=== PATIENT | female | born 1960 ===

== ENCOUNTER 2017-09-16 20:25 | Inpatient (IN) | payer BC ==
[2017-09-16] MEDS ORDERED: Sodium Chloride 0.9% 1,000 ML IV ONE (20:45)
--- NOTE | 2017-09-16 20:45 | C.PDOC ---
History Of Present Illness 56 year old female presents to the ED c/o nausea, vomiting, diarrhea that started yesterday. Patient states that today she noticed some bright red blood in her stool and rectum. Patient states her discomfort is 4/10. Patient denies fever, chills, CP, SOB, weakness, numbness. Time Seen by Provider: 09/16/17 20:44 Chief Complaint (Nursing): GI Problem History Per: Patient History/Exam Limitations: no limitations Onset/Duration Of Symptoms: Days Current Symptoms Are (Timing): Still Present Context: Other Severity: Moderate Pain Scale Rating Of: 4 Location Of Pain/Discomfort: Epigastric Radiation Of Pain To:: None Quality Of Discomfort: "Pain" Associated Symptoms: Nausea, Vomiting, Diarrhea Exacerbating Factors: None Alleviating Factors: None Last Bowel Movement: Today Recent travel outside of the [place]: No Additional History Per: Patient Abnormal Vaginal Bleeding: No Past Medical History Reviewed: Historical Data, Nursing Documentation, Vital Signs Vital Signs: Last Vital Signs Temp 98.4 F 09/16/17 20:33 Pulse 87 09/16/17 20:33 Resp 20 09/16/17 20:33 BP 145/87 09/16/17 20:33 Pulse Ox 97 09/16/17 22:50 - Medical History PMH: Asthma Surgical History: No Surg Hx Family History: States: Unknown Family Hx - Social History Hx Alcohol Use: No Hx Substance Use: No Review Of Systems Constitutional: Negative for: Fever, Chills Eyes: Negative for: Vision Change ENT: Negative for: Throat Pain Cardiovascular: Negative for: Chest Pain, Palpitations Respiratory: Negative for: Cough, Shortness of Breath Gastrointestinal: Positive for: Nausea, Vomiting, Diarrhea, Melena Skin: Negative for: Rash Neurological: Negative for: Weakness, Numbness, Dizziness Psych: Negative for: Anxiety Physical Exam - Physical Exam Appears: Non-toxic, No Acute Distress Skin: Warm, Dry Head: Normacephalic Eye(s): bilateral: Normal Inspection Oral Mucosa: Dry Neck: Supple Chest: Symmetrical Cardiovascular: Rhythm Regular Respiratory: No Rales, No Rhonchi, No Wheezing Gastrointestinal/Abdominal: Soft, Tenderness (mild mid epigastric), No Guarding , No Rebound Rectal: No Hemorrhoids, Other (bright red blood in the vault) Back: Normal Inspection, No CVA Tenderness Extremity: No Tenderness, No Swelling Extremity: Bilateral: Atraumatic, Normal Color And Temperature, Normal ROM Neurological/Psych: Oriented x3, Normal Speech Gait: Steady ED Course And Treatment - Laboratory Results Result Diagrams: 09/16/17 21:05 09/16/17 21:05 O2 Sat by Pulse Oximetry: 97 (ON RA) Pulse Ox Interpretation: Normal - CT Scan/US CT abd/pelvis Other Rad Studies (CT/US): Read By Radiologist, Radiology Report Reviewed CT/US Interpretation: FINDINGS: Lung bases: Unremarkable. No mass. No consolidation. ABDOMEN: Liver: There is a diffuse decrease in hepatic parenchymal density, consistent with fatty infiltration. No mass. Gallbladder and bile ducts: Unremarkable. No calcified stones. No ductal dilation. Pancreas : Unremarkable. No mass. No ductal dilation. Spleen: Unremarkable. No splenomegaly. Adrenals: Unremarkable. No mass. Kidneys and ureters: Unremarkable. No solid mass. No hydronephrosis. Stomach and bowel: Marked diffuse colonic wall thickening from the distal transverse to sigmoid. consistent with acute colitis. No obstruction. PELVIS: Appendix: No findings to suggest acute appendicitis. Normal appendix. Bladder: Unremarkable. No mass. Reproductive: Unremarkable as visualized. [place] | Preliminary Radiology Report. CONFIDENTIALITY STATEMENT. This report is intended only for the use of the referring physician , and only in accordance with law, If you received this in error, call . Page 2 of 2. ABDOMEN and PELVIS: Intraperitoneal space: Unremarkable. No free air. No significant fluid collection. Bones/joints: No acute fracture. No dislocation. Soft tissues: Unremarkable. Vasculature: Unremarkable. No abdominal aortic aneurysm. Lymph nodes: Unremarkable. No enlarged lymph nodes. IMPRESSION: Acute colitis. Thank you for allowing us to participate in the care of your patient. Dictated and Authenticated by: Yeimi Gomez MD. 10:42 PM Eastern Time ([place] & [place]) Progress Note: Plan: - Labs. - IV fluids. - Zofran 4 mg IVP. - UA Disposition Discussed With : Enzo Swann Comment: accepted the pt on his service and took over the care 10:54 PM Counseled Patient/Family Regarding: Studies Performed, Diagnosis - Disposition Disposition: HOSPITALIZED Disposition Time: 20:45 Condition: FAIR Forms: [employer] (Latvian) - POA Present On Arrival: Poor Glycemic Control - Clinical Impression Clinical Impression: Acute colitis, GI bleed - Scribe Statement The provider has reviewed the documentation as recorded by the Scribe Chuy Bran All medical record entries made by the Scribe were at my direction and personally dictated by me. I have reviewed the chart and agree that the record accurately reflects my personal performance of the history, physical exam, medical decision making, and the department course for this patient. I have also personally directed, reviewed, and agree with the discharge instructions and disposition. Decision To Admit - Pt Status Changed To: Hospital Disposition Of: Inpatient - Admit Certification Admit to Inpatient:: After my assessment, the patient will require hospitalization for at least two midnights. This is because of the severity of symptoms shown, intensity of services needed, and/or the medical risk in this patient being treated as an outpatient. - InPatient: Physician Admission Certification:: After my assessment, the patient will require hospitalization for at least two midnights. This is because of the severity of symptoms shown, intensity of services needed, and/or the medical risk in this patient being treated as an outpatient. - . Bed Request Type: Regular Admitting Physician: Enzo Swann Patient Diagnosis: Acute colitis, GI bleed
[2017-09-16 21:10] LABS: BASO % 0.2 % (0.0-2.0); EOS % 0.2 % (0.0-4.0); HEMOGLOBIN 14.9 g/dL (11.0-16.0); LYMPH # 1.9 K/uL (1.0-4.3); LYMPH % 14.8 % (20.0-40.0); MEAN CELL VOLUME 85.1 fL (81.0-99.0); MEAN CORPUSCULAR HEMOGLOBIN 29.1 pg (27.0-31.0); MEAN CORPUSCULAR HGB CONC 34.1 g/dL (33.0-37.0); MEAN PLATELET VOLUME 8.3 fL (7.2-11.7); MONO % 7.3 % (0.0-10.0); NEUT # 10.1 K/uL (1.8-7.0); NEUT % 77.5 % (50.0-75.0); RBC 5.11 Mil/uL (3.80-5.20); RED CELL DISTRIBUTION WIDTH 13.4 % (11.5-14.5)
[2017-09-16 21:11] LABS: HCG,QUALITATIVE URINE NEGATIVE (NEGATIVE)
[2017-09-16] MEDS ORDERED: Sodium Chloride 0.9% 250 ML IV ONE (21:12)
[2017-09-16 21:14] LABS: SQUAMOUS EPITHIAL 10 /hpf (0-5); URINE BACTERIA OCC (<OCC); URINE BILIRUBIN NEGATIVE (NEGATIVE); URINE BLOOD 1+ (NEGATIVE); URINE CLARITY Hazy (Clear); URINE COLOR Yellow (YELLOW); URINE GLUCOSE (UA) NORMAL (Normal); URINE LEUKOCYTE ESTERASE NEG Leu/uL (Negative); URINE PROTEIN NEGATIVE (NEGATIVE); URINE UROBILINOGEN NORMAL mg/dL (0.2-1.0)
[2017-09-16 21:18] LABS: INR 1.2; PROTHROMBIN TIME 12.7 SECONDS (9.7-12.2)
[2017-09-16 21:22] LABS: ALB/GLOB RATIO 1.4 (1.0-2.1); ALBUMIN 4.2 g/dL (3.5-5.0); CALCIUM 9.1 mg/dl (8.6-10.4); GFR AFRICAN-AMERICAN > 60; GFR NON-AFRICAN AMERICAN > 60; LIPASE 54 U/L (23-300)
[2017-09-16 21:23] LABS: ALT/SGPT 53 U/L (9-52); AST/SGOT 30 U/L (14-36); BLOOD UREA NITROGEN 11 mg/dL (7-17)
[2017-09-16] MEDS ORDERED: Iodixanol 320 MG/ML 100 ML BOTTLE IV ONE (21:39)
[2017-09-16] MEDS ORDERED: Ciprofloxacin 400mg/200ml D5W 400 MG/200 ML BAG IVPB STA (22:46)
[2017-09-16] MEDS ORDERED: Ciprofloxacin 400mg/200ml D5W 400 MG/200 ML BAG IVPB ONE (22:59)
[2017-09-16] MEDS ORDERED: metroNIDAZOLE IV 500 mg/100 ml 500 MG/100 ML BAG IVPB SCH (23:00)
[2017-09-17] MEDS: metroNIDAZOLE IV 500 mg/100 ml 500 MG/100 ML BAG IVPB SCH ×4 (00:47→23:16)
[2017-09-17] MEDS: Ciprofloxacin 400mg/200ml D5W 400 MG/200 ML BAG IVPB SCH ×2 (04:27→13:00)
--- NOTE | 2017-09-17 09:10 | CT ---
Date of service: 09/16/2017 PROCEDURE: CT Abdomen and Pelvis with contrast HISTORY: lower gi bleed COMPARISON: None. TECHNIQUE: Contrast dose: 100 mL Visipaque 320. Axial and reformatted coronal and sagittal CT images of the abdomen and pelvis were obtained after IV contrast administration. Radiation dose: Total exam DLP = 1048.68 mGy-cm. This CT exam was performed using one or more of the following dose reduction techniques: Automated exposure control, adjustment of the mA and/or kV according to patient size, and/or use of iterative reconstruction technique. FINDINGS: LOWER THORAX: Unremarkable. LIVER: Hepatic steatosis is noted. No evidence of acute pathology or mass lesion in the liver. The portal vein is patent. GALLBLADDER AND BILE DUCTS: Unremarkable. PANCREAS: Unremarkable. No gross lesion or ductal dilatation. SPLEEN: Unremarkable. ADRENALS: Unremarkable. No mass. KIDNEYS AND URETERS: Unremarkable. No hydronephrosis. No solid mass. VASCULATURE: Unremarkable. No aortic aneurysm. BOWEL: There is diffuse wall thickening involving the splenic flexure and extending to the sigmoid colon consistent with acute colitis. There is no evidence of bowel obstruction. Mildly dilated ascending colon. APPENDIX: No evidence of appendicitis. PERITONEUM: Unremarkable. No free fluid. No free air. LYMPH NODES: Unremarkable. No enlarged lymph nodes. BLADDER: Unremarkable. REPRODUCTIVE: There is a enhancing lesion at the right aspect of the uterus likely represent fibroid measures 4.5 x 3.5 centimeter. BONES: No acute fracture. OTHER FINDINGS: None. IMPRESSION: Findings consistent with left colitis. The differential consideration includes infection inflammatory or ischemic colitis. No evidence of other acute pathology. Additional findings as described above. Preliminary report was submitted by virtual Radiology.
[2017-09-17] MEDS: Enoxaparin 40 mg Syringe SC SCH (10:28)
[2017-09-17 12:41] LABS: BASO % 0.3 % (0.0-2.0); EOS # 0.1 K/uL (0.0-0.7); EOS % 0.5 % (0.0-4.0); HEMOGLOBIN 13.8 g/dL (11.0-16.0); LYMPH # 1.9 K/uL (1.0-4.3); LYMPH % 16.5 % (20.0-40.0); MEAN CELL VOLUME 86.2 fL (81.0-99.0); MEAN CORPUSCULAR HEMOGLOBIN 28.7 pg (27.0-31.0); MEAN CORPUSCULAR HGB CONC 33.3 g/dL (33.0-37.0); MONO % 8.4 % (0.0-10.0); NEUT # 8.5 K/uL (1.8-7.0); NEUT % 74.3 % (50.0-75.0); NRBC % 0.1 % (0.0-2.0); RBC 4.81 Mil/uL (3.80-5.20); RED CELL DISTRIBUTION WIDTH 13.5 % (11.5-14.5); WHITE BLOOD COUNT 11.5 K/uL (4.8-10.8)
[2017-09-17 13:02] LABS: BLOOD UREA NITROGEN 8 mg/dL (7-17); CALCIUM 8.7 mg/dl (8.6-10.4); GFR AFRICAN-AMERICAN > 60; GFR NON-AFRICAN AMERICAN > 60
--- NOTE | 2017-09-17 22:13 | CP.PCM.HP ---
History of Present Illness - History of Present Illness History of Present Illness: History Of Present Illness 56 year old female presents to the ED c/o nausea, vomiting, diarrhea that started yesterday. Patient states that today she noticed some bright red blood in her stool and rectum. Patient states her discomfort is 4/10. Patient denies fever, chills, CP, SOB, weakness, numbness. Past Patient History - Past Medical History & Family History Past Medical History?: Yes - Past Social History Smoking Status: Never Smoked - CARDIAC Hx Cardiac Disorders: No - PULMONARY Hx Respiratory Disorders: Yes Hx Asthma: Yes - NEUROLOGICAL Hx Neurological Disorder: No - HEENT Hx HEENT Problems: No - RENAL Hx Chronic Kidney Disease: No - ENDOCRINE/METABOLIC Hx Diabetes Mellitus Type 2: Yes - HEMATOLOGICAL/ONCOLOGICAL Hx Blood Disorders: No - INTEGUMENTARY Hx Dermatological Problems: No - MUSCULOSKELETAL/RHEUMATOLOGICAL Hx Falls: No Other/Comment: pt states she had rt shoulder injury at work, had "microsurgery" on same - GASTROINTESTINAL Hx Gastrointestinal Disorders: No - GENITOURINARY/GYNECOLOGICAL Hx Genitourinary Disorders: No - PSYCHIATRIC Hx Psychophysiologic Disorder: No Hx Substance Use: No - SURGICAL HISTORY Hx Surgeries: Yes Hx Section: Yes (X 2) - ANESTHESIA Hx Anesthesia: Yes Hx Anesthesia Reactions: Yes Hx Malignant Hyperthermia: No Has any member of the family had a problem w/ anesthesia?: No Meds Allergies/Adverse Reactions: Allergies Allergy/AdvReac Type Severity Reaction Status Date / Time No Known Allergies Allergy Verified 09/16/17 20:33 Results - Vital Signs Recent Vital Signs: Last Vital Signs Temp 99.2 F 09/17/17 16:09 Pulse 76 09/17/17 19:02 Resp 18 09/17/17 19:02 BP 110/70 09/17/17 18:59 Pulse Ox 96 09/17/17 16:09 - Labs Result Diagrams: 09/17/17 12:35 09/17/17 12:35 Labs: Laboratory Results - last 24 hr 09/16/17 09/17/17 09/17/17 21:05 12:35 12:35 WBC 11.5 H RBC 4.81 Hgb 13.8 Hct 41.4 MCV 86.2 MCH 28.7 MCHC 33.3 RDW 13.5 Plt Count 246 MPV 8.0 Neut % (Auto) 74.3 Lymph % (Auto) 16.5 L [place] % (Auto) 8.4 Eos % (Auto) 0.5 Baso % (Auto) 0.3 Neut # (Auto) 8.5 H Lymph # (Auto) 1.9 [place] # (Auto) 1.0 H Eos # (Auto) 0.1 Baso # (Auto) 0.0 Sodium 137 Potassium 3.9 Chloride 102 Carbon Dioxide 27 Anion Gap 11 BUN 8 Creatinine 0.6 L Est GFR ( Amer) > 60 Est GFR (Non-Af Amer) > 60 Random Glucose 176 H Calcium 8.7 Carcinoembryonic Ag 0.8 Blood Type AB POSITIVE Antibody Screen Negative
[2017-09-18] MEDS: Ciprofloxacin 400mg/200ml D5W 400 MG/200 ML BAG IVPB SCH ×3 (00:59→23:58)
[2017-09-18] MEDS: metroNIDAZOLE IV 500 mg/100 ml 500 MG/100 ML BAG IVPB SCH ×2 (07:27→17:38)
[2017-09-18] MEDS ORDERED: Peg-Electrolyte Oral Soln 4L (Golytely) PO ONE (10:00)
[2017-09-18] MEDS: Enoxaparin 40 mg Syringe SC SCH (10:12)
--- NOTE | 2017-09-18 14:45 | PN ---
Copied To: Sourav Jacobs MD Attending MD: Sourav Jacobs MD DATE: 09/18/2017 LOCATION: 564, bed A. SUBJECTIVE: This is a 56-year-old female seen for GI consultation on 09/06/2017 as requested by the admitting MD, reexamined again today with intermittent periods of abdominal pain with recent change of bowel movement habit. No reported hematemesis, chest pain, palpitation or significant shortness of breath, but had nausea, vomiting and diarrhea with traces of fresh red blood rectally. The entire chart is reviewed including but not limited to the most recent lab and radiology study results, current and the previous medication list, current and the previous medical events. Today's lab is still pending. However, the patient had leukocytosis with subsequent mild drop of hemoglobin and hematocrit since the admission with blood glucose level of 176, but stool for occult blood is positive. PHYSICAL EXAMINATION: GENERAL: A 56-year-old female. VITAL SIGNS: Afebrile with pulse of 68, respiratory rate 20 to 22, blood pressure 116/76. HEENT: Showed pale, dry oral mucous membrane. Nonicteric sclerae. LUNGS: Few scattered crepitation. Decreased air entry at bases. HEART: Positive S1 and S2. ABDOMEN: Soft. Bowel sounds are present with mild distention and generalized diffuse tenderness. No mass or organomegaly. No rebound tenderness or guarding. RECTAL: Positive guaiac positive stool. EXTREMITIES: Without significant clubbing, cyanosis, or edema. NEUROLOGIC: No reported new neurological deficit, sensory, or motor. IMPRESSION: 1. Gastrointestinal bleeding, upper versus lower. 2. Re-exacerbation of peptic ulcer disease. 3. Abnormal CAT scan of the abdomen and pelvis with possible left-sided inflammatory versus ischemic colitis. 4. Hyperglycemia by recent history. 5. Known history of bronchial asthma. 6. Right shoulder minor surgery recently of unclear etiology. SUGGESTIONS: 1. Agree with your plan. 2. Cancer markers including CEA. 3. Endoscopic evaluation of the GI tract. 4. Further recommendation to follow. Sourav Jacobs MD
[2017-09-18] MEDS ORDERED: Bisacodyl 5mg EC Tab PO ONE (17:00)
--- NOTE | 2017-09-18 20:52 | CP.PCM.PN ---
Objective - Vital Signs/Intake and Output Vital Signs (last 24 hours): Temp Pulse Resp BP Pulse Ox 98.3 F 69 20 124/83 97 09/18/17 15:00 09/18/17 15:00 09/18/17 15:00 09/18/17 15:00 09/18/17 15:00 - Medications Medications: Current Medications Dicyclomine HCl (Bentyl) 10 mg IM Q8H PRN PRN Reason: GI distress Last Admin: 09/17/17 22:06 Dose: 10 mg Enoxaparin Sodium (Lovenox) 40 mg SC DAILY [facility] Last Admin: 09/18/17 10:12 Dose: 40 mg Famotidine (Pepcid) 20 mg IVP Q12 ERICA Last Admin: 09/18/17 10:11 Dose: 20 mg Metronidazole (Flagyl) 500 mg in 100 mls @ 100 mls/hr IVPB STAT ERICA PRN Reason: Protocol Ciprofloxacin (Cipro 400mg/200ml Dsw) 400 mg in 200 mls @ 133 mls/hr IVPB Q12H ERICA PRN Reason: Protocol Last Admin: 09/18/17 12:42 Dose: 133 mls/hr Metronidazole (Flagyl) 500 mg in 100 mls @ 100 mls/hr IVPB Q8H ERICA PRN Reason: Protocol Last Admin: 09/18/17 17:38 Dose: 100 mls/hr Metoclopramide HCl (Reglan) 5 mg IVP Q6H ERICA Last Admin: 09/18/17 15:30 Dose: Not Given Ondansetron HCl (Zofran Inj) 4 mg IVP Q6 PRN PRN Reason: Nausea/Vomiting Last Admin: 09/18/17 19:05 Dose: 4 mg Pneumococcal Polyvalent Vaccine (Pneumovax 23 Vaccine) 0.5 ml IM .ONCE ONE Stop: 09/19/17 10:01 - Labs Labs: 09/17/17 12:35 09/17/17 12:35 PT 12.7 SECONDS (9.7-12.2) H 09/16/17 21:05 INR 1.2 09/16/17 21:05 APTT 28 SECONDS (21-34) 09/16/17 21:05
[2017-09-19] MEDS: metroNIDAZOLE IV 500 mg/100 ml 500 MG/100 ML BAG IVPB SCH ×3 (00:04→14:46)
[2017-09-19 07:37] LABS: BASO % 0.4 % (0.0-2.0); EOS # 0.1 K/uL (0.0-0.7); EOS % 0.9 % (0.0-4.0); HEMOGLOBIN 13.4 g/dL (11.0-16.0); LYMPH # 1.8 K/uL (1.0-4.3); LYMPH % 24.1 % (20.0-40.0); MEAN CELL VOLUME 86.4 fL (81.0-99.0); MEAN CORPUSCULAR HEMOGLOBIN 29.7 pg (27.0-31.0); MEAN CORPUSCULAR HGB CONC 34.3 g/dL (33.0-37.0); MEAN PLATELET VOLUME 8.3 fL (7.2-11.7); MONO # 0.7 K/uL (0.0-0.8); MONO % 8.9 % (0.0-10.0); NEUT # 4.8 K/uL (1.8-7.0); NEUT % 65.7 % (50.0-75.0); RBC 4.51 Mil/uL (3.80-5.20); RED CELL DISTRIBUTION WIDTH 13.3 % (11.5-14.5); WHITE BLOOD COUNT 7.3 K/uL (4.8-10.8)
[2017-09-19 07:47] LABS: ALB/GLOB RATIO 1.3 (1.0-2.1); ALBUMIN 3.7 g/dL (3.5-5.0); ALT/SGPT 40 U/L (9-52); AST/SGOT 17 U/L (14-36); BLOOD UREA NITROGEN 8 mg/dL (7-17); CALCIUM 8.9 mg/dl (8.6-10.4); GFR AFRICAN-AMERICAN > 60; GFR NON-AFRICAN AMERICAN > 60
--- NOTE | 2017-09-19 09:09 | PN ---
Copied To: Enzo Swann MD Attending MD: Enzo Swann MD DATE: 09/18/2017 SUBJECTIVE: The patient has nausea. She is for colonoscopy. She is afebrile. Positive SOBE. H and H is stable. PHYSICAL EXAMINATION: VITAL SIGNS: Blood pressure 124/83, pulse 69, respiratory rate 22, temperature 98.3. LUNGS: Clear. CARDIOVASCULAR: S1, S2, regular. ABDOMEN: Soft, regular. ASSESSMENT: 1. Gastrointestinal bleed, rule out peptic ulcer disease, rule out colon polyps. 2. Dehydration. PLAN: Continue IV fluids. Colonoscopy tomorrow morning. We will monitor the patient. Enzo Swann MD
[2017-09-19] MEDS: Enoxaparin 40 mg Syringe SC SCH (09:54)
[2017-09-19] MEDS ORDERED: Pneumococcal 23-Valent Vaccine IM ONE (10:00)
[2017-09-19] MEDS: Ciprofloxacin 400mg/200ml D5W 400 MG/200 ML BAG IVPB SCH (13:08)
[2017-09-19] MEDS ORDERED: Propofol 10 mg/ml Inj (20 ML) ONE ×2 (13:33→13:41)
[2017-09-19] MEDS ORDERED: Midazolam 2 MG/2 ML VIAL ONE (13:33)
[2017-09-19] MEDS ORDERED: Lidocaine Hydrochloride 5 ML INJ ONE (13:34)
[2017-09-19] MEDS ORDERED: Bisacodyl 5mg EC Tab PO ONE ×2 (17:00→18:29)
[2017-09-19] MEDS ORDERED: Magnesium Citrate Oral SOL (300 ml) PO ONE (18:00)
--- NOTE | 2017-09-19 19:45 | CON ---
Copied To: Sourav Jacobs MD Attending MD: Sourav Jacobs MD DATE: 09/17/[address] Sourav Jacobs to Dr. Enzo Swann. I was called for GI consultation by the admitting MD. The patient is seen and fully examined on 09/17/[address] Swann. The entire chart is reviewed including, but not limited to the most recent lab and radiology study results, current and the previous medication list, current and the previous medical events. Case discussed at length with the staff. HISTORY OF PRESENT ILLNESS: This is a 56-year-old female who was admitted to the hospital with a main complaint of severe crampy abdominal pain, recurrent episodes of nausea, vomiting with persistent diarrhea with rectal bleeding on and off, but no reported chest pain or palpitation. No chills or fever since the admission. PAST MEDICAL HISTORY: Bronchial asthma. FAMILY HISTORY: Noncontributory. ALLERGIES TO MEDICATIONS: UNCLEAR. SOCIAL HISTORY: Denied any recent history of cigarette smoking or alcohol intake. LABORATORY DATA: Initial blood workup at the time of admission showed leukocytosis of 13 with normal hemoglobin and hematocrit with elevated blood glucose level to 163. Abdominal and pelvic CAT scan showed evidence of acute colitis. PHYSICAL EXAMINATION: GENERAL: A 56-year-old female, awake, alert, oriented. VITAL SIGNS: Afebrile with pulse of 84, respiratory rate 20 to 22, blood pressure 140/80. HEENT: Showed mildly dry oral mucous membrane. Nonicteric sclerae. ABDOMEN: Soft with mild generalized tenderness. No mass or organomegaly. No rebound tenderness or guarding. RECTAL: The patient refused. EXTREMITIES: Without significant clubbing, cyanosis, or edema. NEUROLOGIC: No reported new neurological deficits, sensory or motor. IMPRESSION: 1. Peptic ulcer disease with recurrent episodes of nausea and vomiting, rule out gastric versus duodenal ulcer. 2. Diarrhea and rectal bleeding with abnormal radiology study results indicative mainly of lower gastrointestinal tract blood loss, rule out upper gastrointestinal malignancy. SUGGESTIONS: 1. Agree with your plan. 2. Rehydration. 3. Complete stool analysis. 4. Cancer markers including CEA. 5. Endoscopic evaluation of the GI tract when the patient is more stable clinically and after adequate preparation, keeping in mind the patient never had colonoscopy before despite she is 56. 6. Further recommendation to follow. Thank you for letting me participate in your patient's case management. Sourav Jacobs MD
--- NOTE | 2017-09-19 23:45 | CP.PCM.PN ---
Objective - Vital Signs/Intake and Output Vital Signs (last 24 hours): Temp Pulse Resp BP Pulse Ox 98.1 F 73 20 107/67 97 09/19/17 15:10 09/19/17 15:10 09/19/17 15:10 09/19/17 15:10 09/19/17 15:10 Intake and Output: 09/19/17 09/20/17 18:59 06:59 Intake Total 500 Balance 500 - Medications Medications: Current Medications Dicyclomine HCl (Bentyl) 10 mg IM Q8H PRN PRN Reason: GI distress Last Admin: 09/17/17 22:06 Dose: 10 mg Enoxaparin Sodium (Lovenox) 40 mg SC DAILY ERICA Last Admin: 09/19/17 09:54 Dose: 40 mg Famotidine (Pepcid) 20 mg IVP Q12 ERICA Last Admin: 09/19/17 22:00 Dose: 20 mg Ciprofloxacin (Cipro 400mg/200ml Dsw) 400 mg in 200 mls @ 133 mls/hr IVPB Q12H ERICA PRN Reason: Protocol Last Admin: 09/19/17 13:08 Dose: Not Given Metronidazole (Flagyl) 500 mg in 100 mls @ 100 mls/hr IVPB Q8H ERICA PRN Reason: Protocol Last Admin: 09/19/17 14:46 Dose: 100 mls/hr Metoclopramide HCl (Reglan) 5 mg IVP Q6H ERICA Last Admin: 09/19/17 22:00 Dose: 5 mg Ondansetron HCl (Zofran Inj) 4 mg IVP Q6 PRN PRN Reason: Nausea/Vomiting Last Admin: 09/19/17 01:31 Dose: 4 mg - Labs Labs: 09/19/17 07:03 09/19/17 07:03 PT 12.7 SECONDS (9.7-12.2) H 09/16/17 21:05 INR 1.2 09/16/17 21:05 APTT 28 SECONDS (21-34) 09/16/17 21:05
[2017-09-20] MEDS: metroNIDAZOLE IV 500 mg/100 ml 500 MG/100 ML BAG IVPB SCH (00:29)
[2017-09-20] MEDS: Ciprofloxacin 400mg/200ml D5W 400 MG/200 ML BAG IVPB SCH ×2 (00:58→13:44)
[2017-09-20 07:05] LABS: BASO % 0.6 % (0.0-2.0); EOS # 0.1 K/uL (0.0-0.7); EOS % 2.6 % (0.0-4.0); HEMOGLOBIN 12.4 g/dL (11.0-16.0); LYMPH # 1.4 K/uL (1.0-4.3); LYMPH % 26.3 % (20.0-40.0); MEAN CELL VOLUME 85.3 fL (81.0-99.0); MEAN CORPUSCULAR HEMOGLOBIN 29.6 pg (27.0-31.0); MEAN CORPUSCULAR HGB CONC 34.7 g/dL (33.0-37.0); MONO # 0.5 K/uL (0.0-0.8); MONO % 9.6 % (0.0-10.0); NEUT # 3.4 K/uL (1.8-7.0); NEUT % 60.9 % (50.0-75.0); NRBC % 0.1 % (0.0-2.0); RBC 4.2 Mil/uL (3.80-5.20); RED CELL DISTRIBUTION WIDTH 13.2 % (11.5-14.5); WHITE BLOOD COUNT 5.5 K/uL (4.8-10.8)
[2017-09-20 07:39] LABS: ALB/GLOB RATIO 1.3 (1.0-2.1); ALBUMIN 3.3 g/dL (3.5-5.0); ALT/SGPT 38 U/L (9-52); AST/SGOT 23 U/L (14-36); BLOOD UREA NITROGEN 7 mg/dL (7-17); CALCIUM 8.6 mg/dl (8.6-10.4); GFR AFRICAN-AMERICAN > 60; GFR NON-AFRICAN AMERICAN > 60
--- NOTE | 2017-09-20 09:18 | PN ---
Copied To: Enzo Swann MD Attending MD: Enzo Swann MD DATE: 09/19/2017 SUBJECTIVE: Patient is here for colonoscopy. She has been prepped. . H and H is stable. . PHYSICAL EXAMINATION: VITAL SIGNS: Blood pressure 107/67, pulse 73, respiratory rate 20, temperature 98.1. LUNGS: Clear. CARDIOVASCULAR: S1, S2 regular. ABDOMEN: Soft. ASSESSMENT: 1. Gastrointestinal bleed, gastroenteritis. 2. Dehydration. PLAN: Colonoscopy. Enzo Swann MD
[2017-09-20] MEDS: Enoxaparin 40 mg Syringe SC SCH (10:20)
[2017-09-20] MEDS ORDERED: Propofol 10 mg/ml Inj (20 ML) ONE (11:51)
[2017-09-20] MEDS ORDERED: Lactated Ringer's 500 ML IV ONE ×2 (11:55)
[2017-09-20] MEDS ORDERED: Belladonna-Phenobarbital PO SCH (14:00)
--- NOTE | 2017-09-20 15:19 | CP.PCM.PN ---
Subjective - Date & Time of Evaluation Date of Evaluation: 09/20/17 Time of Evaluation: 11:00 - Subjective Subjective: Patient seen today, denies any abdominal pain, N/V s/p EGD yesterday-See full report for details s/p Colonoscopy - see full report for details Objective - Vital Signs/Intake and Output Vital Signs (last 24 hours): Temp Pulse Resp BP Pulse Ox 98.9 F 63 17 104/67 99 09/20/17 12:40 09/20/17 12:40 09/20/17 12:40 09/20/17 12:40 09/20/17 12:40 - Medications Medications: Current Medications Belladonna/Phenobarbital () 1 tab PO TID ERICA Last Admin: 09/20/17 13:45 Dose: 1 tab Dicyclomine HCl (Bentyl) 10 mg IM Q8H PRN PRN Reason: GI distress Last Admin: 09/17/17 22:06 Dose: 10 mg Enoxaparin Sodium (Lovenox) 40 mg SC DAILY ERICA Last Admin: 09/20/17 10:20 Dose: 40 mg Famotidine (Pepcid) 20 mg IVP Q12 ERICA Last Admin: 09/19/17 22:00 Dose: 20 mg Ciprofloxacin (Cipro 400mg/200ml Dsw) 400 mg in 200 mls @ 133 mls/hr IVPB Q12H ERICA PRN Reason: Protocol Last Admin: 09/20/17 13:44 Dose: 133 mls/hr Metoclopramide HCl (Reglan) 5 mg IVP Q6H ERICA Last Admin: 09/20/17 14:45 Dose: 5 mg Ondansetron HCl (Zofran Inj) 4 mg IVP Q6 PRN PRN Reason: Nausea/Vomiting Last Admin: 09/19/17 01:31 Dose: 4 mg - Labs Labs: 09/20/17 06:58 09/20/17 06:58 PT 12.7 SECONDS (9.7-12.2) H 09/16/17 21:05 INR 1.2 09/16/17 21:05 APTT 28 SECONDS (21-34) 09/16/17 21:05 Assessment and Plan - Assessment and Plan (Free Text) Assessment: A/P 56 year old female presents to the ED c/o nausea, vomiting, diarrhea x 1 day and admitted with acute colitis, r/o GI bleed hgb - stable -no acute drop in hgb clinically improved with antibiotics and IVF s/p EGD and colonoscopy - no acute findings noted ( see full report for details ) patient tolerated diet without N/V D/W Dr. Swann, stable for discharge home today and f/u with PMD in 1 week Discharge plan discussed with patient who understands and agrees with plan Patient instructed to returns to ED if symptoms returns or any other concerning symptoms
[2017-09-20 15:53] VITALS: BP 125/74; PULSE 77; RESP 20; TEMP 98; O2SAT 96
--- NOTE | 2017-09-20 23:09 | CP.PCM.DIS ---
Provider - Provider Date of Admission: 09/16/17 22:49 Attending physician: Enzo Swann MD Hospital Course - Lab Results Lab Results: Most Recent Lab Values WBC 5.5 K/uL (4.8-10.8) 09/20/17 06:58 RBC 4.20 Mil/uL (3.80-5.20) 09/20/17 06:58 Hgb 12.4 g/dL (11.0-16.0) 09/20/17 06:58 Hct 35.9 % (34.0-47.0) 09/20/17 06:58 MCV 85.3 fL (81.0-99.0) 09/20/17 06:58 MCH 29.6 pg (27.0-31.0) 09/20/17 06:58 MCHC 34.7 g/dL (33.0-37.0) 09/20/17 06:58 RDW 13.2 % (11.5-14.5) 09/20/17 06:58 Plt Count 237 K/uL (130-400) 09/20/17 06:58 MPV 8.0 fL (7.2-11.7) 09/20/17 06:58 Neut % (Auto) 60.9 % (50.0-75.0) 09/20/17 06:58 Lymph % (Auto) 26.3 % (20.0-40.0) 09/20/17 06:58 [place] % (Auto) 9.6 % (0.0-10.0) 09/20/17 06:58 Eos % (Auto) 2.6 % (0.0-4.0) 09/20/17 06:58 Baso % (Auto) 0.6 % (0.0-2.0) 09/20/17 06:58 Neut # (Auto) 3.4 K/uL (1.8-7.0) 09/20/17 06:58 Lymph # (Auto) 1.4 K/uL (1.0-4.3) 09/20/17 06:58 [place] # (Auto) 0.5 K/uL (0.0-0.8) 09/20/17 06:58 Eos # (Auto) 0.1 K/uL (0.0-0.7) 09/20/17 06:58 Baso # (Auto) 0.0 K/uL (0.0-0.2) 09/20/17 06:58 PT 12.7 SECONDS (9.7-12.2) H 09/16/17 21:05 INR 1.2 09/16/17 21:05 APTT 28 SECONDS (21-34) 09/16/17 21:05 Sodium 140 mmol/L (132-148) 09/20/17 06:58 Potassium 3.8 mmol/L (3.6-5.2) 09/20/17 06:58 Chloride 102 mmol/L (98-107) 09/20/17 06:58 Carbon Dioxide 30 mmol/L (22-30) 09/20/17 06:58 Anion Gap 12 (10-20) 09/20/17 06:58 BUN 7 mg/dL (7-17) 09/20/17 06:58 Creatinine 0.7 mg/dL (0.7-1.2) 09/20/17 06:58 Est GFR ( Amer) > 60 09/20/17 06:58 Est GFR (Non-Af Amer) > 60 09/20/17 06:58 POC Glucose (mg/dL) 112 mg/dL (65-110) H 09/19/17 13:11 Random Glucose 142 mg/dL (65-105) H 09/20/17 06:58 Calcium 8.6 mg/dl (8.6-10.4) 09/20/17 06:58 Phosphorus 3.7 mg/dL (2.5-4.5) 09/19/17 07:03 Magnesium 2.1 mg/dL (1.6-2.3) 09/19/17 07:03 Total Bilirubin 0.5 mg/dL (0.2-1.3) 09/20/17 06:58 AST 23 U/L (14-36) 09/20/17 06:58 ALT 38 U/L (9-52) 09/20/17 06:58 Alkaline Phosphatase 72 U/L (38-126) 09/20/17 06:58 Total Protein 6.0 g/dL (6.3-8.3) L 09/20/17 06:58 Albumin 3.3 g/dL (3.5-5.0) L 09/20/17 06:58 Globulin 2.6 gm/dL (2.2-3.9) 09/20/17 06:58 Albumin/Globulin Ratio 1.3 (1.0-2.1) 09/20/17 06:58 Lipase 54 U/L (23-300) 09/16/17 21:05 Carcinoembryonic Ag 0.8 ng/mL (0-3.0) 09/17/17 12:35 Urine Color Yellow (YELLOW) 09/16/17 21:07 Urine Clarity Hazy (Clear) 09/16/17 21:07 Urine pH 5.0 (5.0-8.0) 09/16/17 21:07 Ur Specific [place] 1.017 (1.003-1.030) 09/16/17 21:07 Urine Protein Negative mg/dL (NEGATIVE) 09/16/17 21:07 Urine Glucose (UA) Normal mg/dL (Normal) 09/16/17 21:07 Urine Ketones Trace mg/dL (NEGATIVE) 09/16/17 21:07 Urine Blood 1+ (NEGATIVE) H 09/16/17 21:07 Urine Nitrate Negative (NEGATIVE) 09/16/17 21:07 Urine Bilirubin Negative (NEGATIVE) 09/16/17 21:07 Urine Urobilinogen Normal mg/dL (0.2-1.0) 09/16/17 21:07 Ur Leukocyte Esterase Neg [place]/uL (Negative) 09/16/17 21:07 Urine WBC (Auto) 14 /hpf (0-5) H 09/16/17 21:07 Urine RBC (Auto) 1 /hpf (0-3) 09/16/17 21:07 Ur Squamous Epith Cells 10 /hpf (0-5) H 09/16/17 21:07 Urine Bacteria Occ (<OCC) H 09/16/17 21:07 Urine HCG, Qual Negative (NEGATIVE) 09/16/17 21:07 Stool Occult Blood Positive (NEGATIVE) H 09/16/17 21:05 Blood Type AB POSITIVE 09/16/17 21:05 Antibody Screen Negative 09/16/17 21:05 Discharge Plan - Discharge Medications Prescriptions: Famotidine [Pepcid] 20 mg PO Q12 #20 tab - Follow Up Plan Condition: FAIR Disposition: HOME/ ROUTINE Instructions: Gastrointestinal Bleeding (DC) Additional Instructions: Please f/u with Dr. Herrera office in 1 week- call and make appointment Please f/u with office in 5 weeks- call and make appointment Resume all home medications Referrals: Sourav Sneed [Staff Provider] - Enzo Swann MD [Staff Provider] -
== END 2017-09-20 15:30 | disposition home or self-care (01) | DRG 379 ==
LOC: C.ER 20:25 → C.9E 22:49 → C.5S 09-17 15:37
PROVIDERS: ADMIT Internal Medicine; ATTEND Internal Medicine
PROC: 0DBK8ZX Excision of Ascending Colon, Via Natural or Artificial Opening Endoscopic, Diagnostic (ICD-10-PCS; 2017-09-19)
PROC: 0DB88ZX Excision of Small Intestine, Via Natural or Artificial Opening Endoscopic, Diagnostic (ICD-10-PCS; 2017-09-19 13:30)
PROC: 0DBM8ZX Excision of Descending Colon, Via Natural or Artificial Opening Endoscopic, Diagnostic (ICD-10-PCS; principal; 2017-09-20 11:55)
DX: K92.2 Gastrointestinal hemorrhage, unspecified (principal); E86.0 Dehydration; K52.9 Noninfective gastroenteritis and colitis, unspecified; D50.0 Iron deficiency anemia secondary to blood loss (chronic); K63.5 Polyp of colon; K21.9 Gastro-esophageal reflux disease without esophagitis; K44.9 Diaphragmatic hernia without obstruction or gangrene; J45.909 Unspecified asthma, uncomplicated; E11.65 Type 2 diabetes mellitus with hyperglycemia